=== PATIENT | female | born 1965 ===

== ENCOUNTER 2024-08-31 09:28 | Outpatient (REF) | payer BC, SELFPAY ==
[2024-08-31 23:06] LABS: TSH (W/Ref FT4) 4.85 uIU/mL (0.36-3.74); Vitamin D 25 Total 43.9 ng/mL (30-100)
[2024-08-31 23:23] LABS: FREE T4 1.03 ng/dL (0.76-1.46)
== END 2024-08-31 09:29 | disposition home or self-care (01) ==
LOC: NCHCN 09:28
PROVIDERS: Visit Provider Family Medicine
DX: R94.6 Abnormal results of thyroid function studies (principal); E55.9 Vitamin D deficiency, unspecified
CPT/HCPCS: 82306; 84439; 84443